=== PATIENT | male | born 1980 | race Caucasian/White ===

== ENCOUNTER 2016-07-07 10:16 | Emergency (ER) | payer OTHER ==
[2016-07-07 10:31] VITALS: BP 135/91; PULSE 84; TEMP 98.1; BMI 27.1
--- NOTE | 2016-07-07 11:02 | PDOC ---
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 States suspect did not have any bleeding or any injuries. After washing his hands noted that he had some abrasions to those digits causing the bleeding. Denies pain, denies any bony injury. Vaccinations are up-to-date Occurred: reports: just prior to arrival, this morning Severity: reports: mild Pain Location: reports: upper extremity Method of Injury: Yes: unknown Past History - Travel Traveled outside of the country in the last 30 days: No Close contact w/someone who was outside of country & ill: No (right hand) - Past Medical History Allergies/Adverse Reactions: Allergies Allergy/AdvReac Type Severity Reaction Status Date / Time No Known Allergies Allergy Verified 07/07/16 10:31 Home Medications: Ambulatory Orders NK [No Known Home Medication] 07/07/16 Anemia: No Asthma: No Cancer: No Cardiac Disorders: No CVA: No COPD: No CHF: No Dementia: No Diabetes: No GI Disorders: Yes (REFLUX) Disorders: No HTN: Yes Hypercholesterolemia: No Liver Disease: No Seizures: No Thyroid Disease: No - Surgical History Abdominal Surgery: No Appendectomy: No Cardiac Surgery: No Cholecystectomy: No Lung Surgery: No Neurologic Surgery: No Orthopedic Surgery: Yes (MICRODISCECTOMY 2008) - Psycho/Social/Smoking Cessation Hx Anxiety: No Suicidal Ideation: No Smoking Status: No Smoking History: Never smoked Have you smoked in the past 12 months: No Number of Cigarettes Smoked Daily: 0 Information on smoking cessation initiated: No Hx Alcohol Use: No Drug/Substance Use Hx: No Substance Use Type: None Hx Substance Use Treatment: No Trauma Specific PMHX - Complaint Specific PMHX Back Injury: No Neck Injury: No Review of Systems - Review of Systems Able to Perform ROS?: Yes Is the patient limited Estonian proficient: Yes Constitutional: No: Symptoms Reported HEENTM: No: Symptoms Reported Musculoskeletal: Yes: See HPI. No: Symptoms Reported Integumentary: Yes: Symptoms Reported, See HPI, Dryness, Lesions Neurological: No: Symptoms reported All Other Systems: Reviewed and Negative *Physical Exam - Vital Signs Last Vital Signs Temp Pulse Resp BP Pulse Ox 98.1 F 84 17 135/91 99 07/07/16 10:29 07/07/16 10:29 07/07/16 10:29 07/07/16 10:07/07/16 10:29 - Physical Exam General Appearance: Yes: Nourished, Appropriately Dressed. No: Apparent Distress HEENT: positive: ABBEY, Normal ENT Inspection, TMs Normal, Pharynx Normal Extremity: positive: Normal Capillary Refill, Normal Inspection, Normal Range of Motion. negative: Tender Integumentary: positive: Dry (with some superficial abrasions right thumb at IP joint, and along radial aspect of right index finger. Superficial nontender and no active bleeding noted. 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 Cleaned and dressed with bacitracin and Band-Aids. *DC/Admit/Observation/Transfer Diagnosis at time of Disposition: Abrasion hand Qualifiers: Encounter type: initial encounter Laterality: right Qualified Code(s): S60.511A - Abrasion of right hand, initial encounter - Discharge Dispostion Disposition: HOME Condition at time of disposition: Stable Admit: No - Patient Instructions Printed Discharge Instructions: DI for Abrasion Additional Instructions: Rest, avoid strenuous lifting until abrasions are healed Then may remove dressing gently and wash area with soap and water. Reapply bacitracin ointment and dressing daily for the next 5 days May use Tylenol or Motrin for pain relief - Post Discharge Activity Work/School Note: Back to Work
== END 2016-07-07 11:10 | disposition home or self-care (01) ==
LOC: JERFT 10:16
DX: S60.511A Abrasion of right hand, initial encounter (principal); Y35.811A Legal intervention involving manhandling, law enforcement official injured, initial encounter; Y93.89 Activity, other specified; Y92.89 Other specified places as the place of occurrence of the external cause; Y99.0 Civilian activity done for income or pay
CPT/HCPCS: 99281-25

== ENCOUNTER 2018-07-29 08:47 | Emergency (ER) | payer OTHER, BC ==
[2018-07-29 08:53] VITALS: BP 156/94; PULSE 84; TEMP 98.4; BMI 27.8
[2018-07-29] MEDS ORDERED: ACETAMINOPHEN 325 MG TABLET (FP) PO ONE (09:04)
[2018-07-29] MEDS ORDERED: ACETAMINOPHEN 325 MG TABLET (FP) ONE (09:05)
--- NOTE | 2018-07-29 09:07 | PDOC ---
History of Present Illness - General Chief Complaint: Head/Neck problem Stated Complaint: injury on the neck Time Seen by Provider: 07/29/18 09:03 History Source: Patient Exam Limitations: No Limitations - History of Present Illness Associated Symptoms: denies: chest pain, fever/chills (38y/o M with left mandibular pain after a gas tank accidently struck his face yesterday at work), headaches, shortness of breath Past History - Travel Traveled outside of the country in the last 30 days: No Close contact w/someone who was outside of country & ill: No - Past Medical History Allergies/Adverse Reactions: Allergies Allergy/AdvReac Type Severity Reaction Status Date / Time No Known Allergies Allergy Verified 07/07/16 10:31 Home Medications: Ambulatory Orders Cyclobenzaprine HCl [Flexeril 10 mg] 10 mg PO BID PRN 7 Days #20 tablet Ibuprofen 800 mg PO ACDIN 7 Days #21 tablet 07/29/18 Anemia: No Asthma: No Cancer: No Cardiac Disorders: No CVA: No COPD: No CHF: No Dementia: No Diabetes: No GI Disorders: Yes (REFLUX) Disorders: No HTN: Yes Hypercholesterolemia: No Liver Disease: No Seizures: No Thyroid Disease: No - Surgical History Abdominal Surgery: No Appendectomy: No Cardiac Surgery: No Cholecystectomy: No Lung Surgery: No Neurologic Surgery: No Orthopedic Surgery: Yes (MICRODISCECTOMY 2008) - Immunization History Immunization Up to Date: No - Suicide/Smoking/Psychosocial Hx Smoking Status: No Smoking History: Never smoked Have you smoked in the past 12 months: No Number of Cigarettes Smoked Daily: 0 Information on smoking cessation initiated: No Hx Alcohol Use: No Drug/Substance Use Hx: No Substance Use Type: None Hx Substance Use Treatment: No Review of Systems - Review of Systems Is the patient limited Thai proficient: No Constitutional: No: Chills, Fever HEENTM: No: Ear Pain (mandibular pain), Ear Discharge, Nose Congestion, Tinnitus , Mouth Swelling Cardiac (ROS): No: Chest Pain Neurological: No: Headache, Unsteady Gait, Dizziness *Physical Exam - Vital Signs Last Vital Signs Temp Pulse Resp BP Pulse Ox 98.4 F 84 72 H 156/94 99 07/29/18 08:50 07/29/18 08:50 07/29/18 08:50 07/29/18 08:50 07/29/18 08:50 - Physical Exam General Appearance: Yes: Nourished HEENT: positive: TMs Normal, Pharynx Normal Neck: positive: Supple. 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 if pain persist then CT imaging may be warranted *DC/Admit/Observation/Transfer Diagnosis at time of Disposition: Pain in mandible - Discharge Dispostion Disposition: HOME Condition at time of disposition: Good - Prescriptions Prescriptions: Cyclobenzaprine HCl [Flexeril 10 mg] 10 mg PO BID PRN 7 Days #20 tablet PRN Reason: Pain Ibuprofen 800 mg PO ACDIN 7 Days #21 tablet - Referrals Referrals: Remington Mendoza MD [Primary Care Provider] - - Patient Instructions Printed Discharge Instructions: Jaw Pain: It's Not Just Stress Additional Instructions: I discussed the physical exam findings, ancillary test results and final diagnoses with the patient. I answered all of the patient's questions. The patient was satisfied with the care received and felt comfortable with the discharge plan and treatment plan. The patient will call their primary care physician within 24 hours to arrange follow-up and will return to the Emergency Department with any new, persistant or worsening symptoms. - Post Discharge Activity
== END 2018-07-29 09:37 | disposition home or self-care (01) ==
LOC: JERFT 08:47
DX: S09.8XXA Other specified injuries of head, initial encounter (principal); R68.84 Jaw pain; W22.8XXA Striking against or struck by other objects, initial encounter; Y93.89 Activity, other specified; Y92.89 Other specified places as the place of occurrence of the external cause; Y99.0 Civilian activity done for income or pay
CPT/HCPCS: 70100-TC-FY; 99281-25